=== PATIENT | male | born 1940 | race Caucasian/White ===

== ENCOUNTER 2019-12-08 05:08 | Emergency (ER) | payer MEDICARE ==
[~2019-12-08] VITALS: Ht 188 cm; Wt 158.8 kg
[2019-12-08 05:34] LABS: BASOPHILS ABSOLUTE AUTO 0.08 K/mm3 (0.00-0.23); BASOPHILS PERCENT AUTO 1 % (0-2); EOSINOPHILS ABSOLUTE AUTO 0.13 K/mm3 (0.00-0.68); EOSINOPHILS PERCENT AUTO 1 % (0-6); Hematocrit 49.8 % (37.0-53.0); Hemoglobin 16.3 g/dL (13.5-17.5); IMMATURE GRAN ABSOLUTE AUTO 0.04 K/mm3 (0.00-0.10); IMMATURE GRAN PERCENT AUTO 0 % (0-1); LYMPHOCYTES ABSOLUTE AUTO 2.75 K/mm3 (0.84-5.20); LYMPHOCYTES PERCENT AUTO 22 % (21-46); MONOCYTES ABSOLUTE AUTO 1.25 K/mm3 (0.16-1.47); MONOCYTES PERCENT AUTO 10 % (4-13); Mean Corpuscular HGB 30.6 pg (26.0-34.0); Mean Corpuscular HGB Conc 32.7 g/dL (31.5-36.5); Mean Corpuscular Volume 94 fL (80-100); Mean Platelet Volume 11.3 fL (9.1-12.4); NEUTROPHILS ABSOLUTE AUTO 8.04 K/mm3 (1.96-9.15); NEUTROPHILS PERCENT AUTO 65 % (41-73); Platelet Count 229 K/mm3 (150-400); RDW Coefficient Variation 12.8 % (11.7-14.2); RDW Standard Deviation 44.1 fL (35.1-46.3); Red Blood Cell Count 5.32 M/mm3 (4.30-5.90); White Blood Cell Count 12.29 K/mm3 (4.00-11.30)
[2019-12-08] MEDS ORDERED: ASPI81CH PO (05:34)
[2019-12-08] MEDS ORDERED: TADA10TA (05:34)
[2019-12-08 05:54] LABS: Albumin, Blood 3.4 g/dL (3.4-5.0); Albumin/Globulin Ratio 0.8 (0.8-1.8); Bilirubin, Total 0.7 mg/dL (0.1-1.0); Bun/Creatinine Ratio 16.2 (12.0-20.0); Creatinine, Blood 1.3 mg/dL (0.60-1.20); Globulin, Blood 4.1 g/dL (2.2-4.0); Total Protein, Blood 7.5 g/dL (6.4-8.2)
[2019-12-08 05:57] LABS: Influenza A Negative (NEGATIVE); Influenza B Negative (NEGATIVE)
[2019-12-08] MEDS ORDERED: ALBU90OI INH (06:27)
[2019-12-08] MEDS ORDERED: LEVO750 PO (06:27)
== END 2019-12-08 06:36 | disposition home or self-care (01) ==
LOC: ER 05:08
PROVIDERS: Emergency Medicine
DX: J18.9 Pneumonia, unspecified organism (principal); Z79.899 Other long term (current) drug therapy; Z79.82 Long term (current) use of aspirin; Z87.891 Personal history of nicotine dependence
CPT/HCPCS: 71046; 80053; 85025; 87804; 93005; 93010; 94640; 99284-25

== ENCOUNTER 2019-12-15 20:46 | Emergency (ER) | payer MEDICARE ==
[~2019-12-15] VITALS: Ht 188 cm; Wt 158.8 kg
[~2019-12-15 20:46] MED LIST: ALBU90OI INH; ASPI81CH PO; LEVO750 PO; TADA10TA
== END 2019-12-15 23:42 | disposition home or self-care (01) ==
LOC: ER 20:46
DX: S81.811A Laceration without foreign body, right lower leg, initial encounter (principal); R60.0 Localized edema; Z23 Encounter for immunization; Z79.899 Other long term (current) drug therapy; Z79.82 Long term (current) use of aspirin; Z79.51 Long term (current) use of inhaled steroids; X58.XXXA Exposure to other specified factors, initial encounter
CPT/HCPCS: 12004; 90471; 90714; 99282-25

== ENCOUNTER 2020-03-03 19:46 | Emergency (ER) | payer MEDICARE ==
[~2020-03-03] VITALS: Ht 188 cm; Wt 160.6 kg
== END 2020-03-03 21:39 | disposition home or self-care (01) ==
LOC: ER 19:46
DX: S81.812A Laceration without foreign body, left lower leg, initial encounter (principal); Z79.899 Other long term (current) drug therapy; Z79.51 Long term (current) use of inhaled steroids; Z79.82 Long term (current) use of aspirin; W23.0XXA Caught, crushed, jammed, or pinched between moving objects, initial encounter
CPT/HCPCS: 99282

== ENCOUNTER → 2020-06-30 | Outpatient (CLI) | payer MEDICARE ==
[2020-07-01 15:44] LABS: Albumin, Blood 3.2 g/dL (3.4-5.0); Albumin/Globulin Ratio 0.9 (0.8-1.8); Bilirubin, Total 0.4 mg/dL (0.1-1.0); Calcium, Blood 8.5 mg/dL (8.5-10.1); Creatinine, Blood 1.54 mg/dL (0.60-1.20); Globulin, Blood 3.6 g/dL (2.2-4.0); Potassium, Blood 4.7 mmol/L (3.5-5.5); Total Protein, Blood 6.8 g/dL (6.4-8.2)
== END | disposition home or self-care (01) ==
LOC: LAB SHORT 16:25 → LAB 16:25
PROVIDERS: Nurse Practitioner Family
DX: Z12.5 Encounter for screening for malignant neoplasm of prostate (principal); L03.119 Cellulitis of unspecified part of limb; R60.0 Localized edema
CPT/HCPCS: 80053; 87070; 87077; 87147; 87186; 87205; G0103

== ENCOUNTER 2021-02-28 20:20 | Observation (INO) | payer OTHER, MEDICARE ==
[~2021-02-28] VITALS: Ht 188 cm; Wt 167.5 kg
[2021-02-28 20:52] LABS: BASOPHILS ABSOLUTE AUTO 0.07 K/mm3 (0.00-0.23); BASOPHILS PERCENT AUTO 1 % (0-2); EOSINOPHILS ABSOLUTE AUTO 0.14 K/mm3 (0.00-0.68); EOSINOPHILS PERCENT AUTO 2 % (0-6); Hematocrit 47.5 % (37.0-53.0); Hemoglobin 15.9 g/dL (13.5-17.5); IMMATURE GRAN ABSOLUTE AUTO 0.02 K/mm3 (0.00-0.10); IMMATURE GRAN PERCENT AUTO 0 % (0-1); LYMPHOCYTES ABSOLUTE AUTO 2.98 K/mm3 (0.84-5.20); LYMPHOCYTES PERCENT AUTO 37 % (21-46); MONOCYTES ABSOLUTE AUTO 0.74 K/mm3 (0.16-1.47); MONOCYTES PERCENT AUTO 9 % (4-13); Mean Corpuscular HGB 30.6 pg (26.0-34.0); Mean Corpuscular HGB Conc 33.5 g/dL (31.5-36.5); Mean Corpuscular Volume 92 fL (80-100); Mean Platelet Volume 10.1 fL (9.1-12.4); NEUTROPHILS ABSOLUTE AUTO 4.12 K/mm3 (1.96-9.15); NEUTROPHILS PERCENT AUTO 51 % (41-73); Platelet Count 236 K/mm3 (150-400); RDW Coefficient Variation 13.2 % (11.7-14.2); RDW Standard Deviation 44.3 fL (35.1-46.3); Red Blood Cell Count 5.19 M/mm3 (4.30-5.90); White Blood Cell Count 8.07 K/mm3 (4.00-11.30)
[2021-02-28 21:37] LABS: Alanine Aminotransfer (ALT/SGP 21 U/L (12-78); Albumin, Blood 3.4 g/dL (3.4-5.0); Albumin/Globulin Ratio 0.9 (0.8-1.8); Alk Phos 58 U/L (50-136); Anion Gap 2 mmol/L (6-16); Aspartate Aminotrans (AST/SGOT 13 U/L (12-37); Bilirubin, Total 0.5 mg/dL (0.1-1.0); Blood Urea Nitrogen 17 mg/dL (8-24); Bun/Creatinine Ratio 13.2 (12.0-20.0); CO2, Blood 31 mmol/L (21-32); Calcium, Blood 8.9 mg/dL (8.5-10.1); Chloride, Blood 106 mmol/L (98-108); Creatinine, Blood 1.29 mg/dL (0.60-1.20); Globulin, Blood 3.8 g/dL (2.2-4.0); Glomerular Filtration Rate 57 (60-); Glucose, Blood 155 mg/dL (70-99); Potassium, Blood 3.7 mmol/L (3.5-5.5); Sodium, Blood 139 mmol/L (136-145); Total Protein, Blood 7.2 g/dL (6.4-8.2); Troponin I <0.015 ng/mL (0.000-0.040)
[2021-03-01 04:41] LABS: BASOPHILS ABSOLUTE AUTO 0.05 K/mm3 (0.00-0.23); BASOPHILS PERCENT AUTO 0 % (0-2); EOSINOPHILS ABSOLUTE AUTO 0.03 K/mm3 (0.00-0.68); EOSINOPHILS PERCENT AUTO 0 % (0-6); Hematocrit 45.6 % (37.0-53.0); Hemoglobin 15.5 g/dL (13.5-17.5); IMMATURE GRAN ABSOLUTE AUTO 0.03 K/mm3 (0.00-0.10); IMMATURE GRAN PERCENT AUTO 0 % (0-1); LYMPHOCYTES ABSOLUTE AUTO 1.23 K/mm3 (0.84-5.20); LYMPHOCYTES PERCENT AUTO 11 % (21-46); MONOCYTES ABSOLUTE AUTO 1.02 K/mm3 (0.16-1.47); MONOCYTES PERCENT AUTO 9 % (4-13); Mean Corpuscular HGB 30.4 pg (26.0-34.0); Mean Corpuscular Volume 89 fL (80-100); NEUTROPHILS ABSOLUTE AUTO 8.96 K/mm3 (1.96-9.15); NEUTROPHILS PERCENT AUTO 79 % (41-73); Platelet Count 223 K/mm3 (150-400); RDW Coefficient Variation 13.1 % (11.7-14.2); White Blood Cell Count 11.32 K/mm3 (4.00-11.30)
[2021-03-01 04:58] LABS: Alanine Aminotransfer (ALT/SGP 18 U/L (12-78); Albumin, Blood 3.4 g/dL (3.4-5.0); Albumin/Globulin Ratio 0.9 (0.8-1.8); Alk Phos 56 U/L (50-136); Anion Gap 4 mmol/L (6-16); Aspartate Aminotrans (AST/SGOT 19 U/L (12-37); Bilirubin, Total 0.8 mg/dL (0.1-1.0); Blood Urea Nitrogen 18 mg/dL (8-24); Bun/Creatinine Ratio 15.7 (12.0-20.0); CO2, Blood 28 mmol/L (21-32); CPK Creatine Kinase 52 U/L (39-308); Calcium, Blood 8.7 mg/dL (8.5-10.1); Chloride, Blood 106 mmol/L (98-108); Creatinine, Blood 1.15 mg/dL (0.60-1.20); Globulin, Blood 3.6 g/dL (2.2-4.0); Glomerular Filtration Rate >60 (60-); Glucose, Blood 117 mg/dL (70-99); Potassium, Blood 3.7 mmol/L (3.5-5.5); Sodium, Blood 138 mmol/L (136-145); Troponin I <0.015 ng/mL (0.000-0.040)
--- NOTE | 2021-03-01 05:25 | NUR ---
SHIFT SUMMARY- PT. NEW ADMIT FROM ED ARRIVED TO ROOM VIA STRETCHER. AMBULATED W/ASSIST TO THE BED. A&OX4, USES URINAL AT BEDSIDE. PT. WITH SEVERE LEG EDEMA AND OCCASIONAL SOB WITH EXERTION. BP ELEVATED UPON ARRIVAL TO UNIT, MEDICATED WITH HYDRALAZINE PER EMAR. REPEAT BP IMPROVED. PT. HAD NO COMPLAINTS OF PAIN OR DISCOMFORT T/O THE NIGHT, VSS. CALL LIGHT WITHIN REACH AND SIDE RAILS UPX2. WILL CONT TO MONITOR.
--- NOTE | 2021-03-01 10:28 | NUR ---
Echocardiogram performed by Piedad Huizar under my supervision.
[2021-03-01 13:14] LABS: CPK Creatine Kinase 35 U/L (39-308); Troponin I <0.015 ng/mL (0.000-0.040)
[2021-03-01] MEDS ORDERED: LISI20 PO (15:41)
[2021-03-01] MEDS ORDERED: ASPI81CH PO (15:41)
--- NOTE | 2021-03-01 15:49 | NUR ---
REVIEW D'C WITH W/PATIENT AND FAMILY. AWARE HAS MEDS AT [facility]. REVIEW MED. HAS F/U APPT NEXT WEEK WITH . ANSWER ALL QUESTIONS. NO SWELLING OR BRUISING AT IV SITE. PATIENT AND S.O. VERBALIZE UNDERSTANDING OF INSTRUCTIONS. IN W/C TO POV.
== END 2021-03-01 15:53 | disposition home or self-care (01) ==
LOC: ER 20:20 → MEDS 20:21 → ER 23:04 → MEDS 23:29
PROVIDERS: Physician Assistant; ADMIT Internal Medicine
DX: I16.0 Hypertensive urgency (principal); I89.0 Lymphedema, not elsewhere classified; M25.512 Pain in left shoulder; I10 Essential (primary) hypertension; E66.9 Obesity, unspecified; Z79.82 Long term (current) use of aspirin; Z68.42 Body mass index [BMI] 45.0-49.9, adult
CPT/HCPCS: 36415; 71045; 80053; 82550; 84484; 85025; 93005; 93010; 93306; A9270; A9270-GY; J0360; J1650